=== PATIENT | female | born 1985 | race Caucasian/White ===

== ENCOUNTER → 2017-01-22 | Outpatient (CLI) | payer OTHER ==
--- NOTE | 2017-01-24 08:28 | US ---
PROCEDURE: Abdomen,Complete Clinical History: GENERALIZED ABD PAIN Indication: Same as above Comparison: None . Technique: Grayscale evaluation and color Doppler evaluation of the abdomen was done Findings: The gallbladder is well distended. The gallbladder wall thickness is 2.6 millimeters. There is presence of multiple intraluminal gallstones, the largest calculus measuring 1.4 cm There is no evidence of pericholecystic fluid. There is no ultrasonographically positive Duque's sign. The common duct measures 4.3 millimeters . There are no intraductal calculi visualized. The liver measures 14.8 centimeters in length . There are no focal liver lesions. There is no intrahepatic biliary dilatation. There is normal blood flow direction in the main portal vein, right and left portal veins and the hepatic veins. The pancreas , the visualized portions are unremarkable . The pancreatic tail is not visualized. The spleen measures 12.5 centimeters in length and appears unremarkable, without any focal lesions. The right kidney measures 10.2 centimeters in length and the left kidney measures 10.6 centimeters in length. The bilateral kidneys do not show any evidence of hydronephrosis or nephrolithiasis. There is no evidence of ascites. The visualized portions of the inferior vena cava are patent. The visualized portion of the abdominal aorta does not show any clinically significant aneurysmal dilatation. Impression: Cholelithiasis without ultrasound evidence of acute cholecystitis. There is no intrahepatic or extrahepatic biliary dilatation Location of Interpretation: Teleradiology Electronically signed by: Rian Enamorado MD 01/24/2017 8:27 AM CDT Workstation: [id number]
== END | disposition home or self-care (01) ==
LOC: US 10:06
PROVIDERS: ATTEND Nurse Practitioner Family
DX: R10.84 Generalized abdominal pain (principal)

== ENCOUNTER 2017-02-16 08:00 | Day surgery (SDC) | payer OTHER ==
[~2017-02-16 08:00] MED LIST: LACTATED RINGERS 1,000 ML ONE; SODIUM CHL 0.9% 100ML MINI-BAG 100 ML IVPB ONE; ceFAZolin SODIUM 1 GM VIAL ONE
[2017-02-16] MEDS ORDERED: BUPIVACAINE 0.25% W/EPI 50 ML VIAL INJ ONE (08:22)
[2017-02-16] MEDS ORDERED: HEPARIN SODIUM (PORCINE) 10,000 UNITS/ML VIAL ONE (08:23)
[2017-02-16] MEDS ORDERED: MIDAZOLAM INJ 2 MG/2 ML VIAL ONE (08:30)
[2017-02-16] MEDS ORDERED: fentaNYL CITRATE INJ 50 MCG/ML AMP ONE (08:30)
[2017-02-16] MEDS ORDERED: ROCURONIUM BROMIDE 10 MG/ML VIAL ONE (08:30)
[2017-02-16] MEDS ORDERED: HYDROmorphone HCL INJ 2 MG/ML VIAL ONE (09:33)
[2017-02-16] MEDS ORDERED: SUGAMMADEX SODIUM 200 MG/2 ML VIAL IV ONE (09:59)
[2017-02-16] MEDS ORDERED: KETOROLAC TROMETHAMINE INJ 30 MG/ML VIAL ONE (10:32)
[2017-02-16 11:12] VITALS: O2SAT 99
--- NOTE | 2017-02-16 11:16 | OP ---
DATE OF PROCEDURE: 02/16/17 PREOPERATIVE DIAGNOSIS: 1. Symptomatic cholelithiasis. POSTOPERATIVE DIAGNOSIS: 1. Symptomatic cholelithiasis. 2. Chronic cholecystitis. PROCEDURE: 1. Laparoscopic cholecystectomy with intraoperative cholangiography using fluoroscopy. SURGEON: Jerald Palacio MD. PACKING ROOM WORKER: None. ANESTHESIA: Local infiltration of 0.25% Marcaine with epinephrine and general endotracheal anesthesia. INDICATION: The patient is a 31-year-old female who has had fatty food intolerance, right upper quadrant pain with radiation to the flank and back. The patient was brought to the Surgical Suite today for cholecystectomy after the risks, benefits and alternatives to the procedure were discussed and accepted. She did have a sonogram revealing gallstones. FINDINGS: The gallbladder was mildly distended, mildly thick walled. Intraoperative cholangiography revealed free flow into the duodenum with no filling defects or strictures noted. There were no adhesions to the gallbladder. There were no other adhesions or abnormalities identified in the abdominal cavity. DESCRIPTION OF PROCEDURE: After adequate general endotracheal anesthesia was obtained, the patient was prepped and draped in the usual sterile manner. Surgical time-out was taken. The patient had been given 2 grams of Ancef. The infraumbilical area was infiltrated with local anesthesia. A curvilinear incision was fashioned and carried down through the subcutaneous tissue to the midline fascia. Traction sutures were placed on either side of the midline. A small incision was made in the midline fascia and the peritoneum was opened bluntly. Olesya trocar was introduced under direct vision into the abdominal cavity and fixed in place with the 20 mL balloon. CO2 was then insufflated until a pressure of 12 mmHg was reached and the abdomen was tympanitic in all four quadrants. When this was done, the laparoscope was introduced. The abdomen was inspected with the previously noted findings. The patient was then placed in reverse Trendelenburg position, turned to the left side. The upper abdominal ports were placed under direct vision. The gallbladder was grasped, retracted anteriorly and laterally. The neck of the gallbladder was retracted laterally. The triangle of Calot was then explored bluntly. The cystic duct and cystic artery identified and isolated. The cystic duct was hemoclipped once proximally. The cystic artery was hemoclipped twice proximally and once distally. A small incision was made in the cystic duct. The cholangiogram catheter was introduced through a separate stab wound in the right upper quadrant, introduced into the cystic duct and clipped in place. Cholangiograms were then taken using fluoroscopy which revealed free flow into the duodenum with no filling defects or strictures noted. When this was done, the cystic duct catheter was removed. The cystic duct was hemoclipped three times distally and divided between the hemoclips. The cystic artery was divided. The gallbladder was then dissected free from the gallbladder bed of the liver using electrocautery. The gallbladder was removed from the infraumbilical port site in the usual manner under direct vision. When this was done, the subhepatic space and subphrenic space were irrigated copiously with saline. The effluent was noted to be clear. There was no bleeding from the gallbladder bed of the liver. The brian hepatis was inspected and no bleeding or bile leak was identified. The upper abdominal ports were removed under direct vision. The middle 5 mm port, oozing could not be controlled with electrocautery, so a single 0 Vicryl simple suture was placed using the Endoclose device. When this was done, hemostasis was noted to be adequate. At this point, the CO2, the laparoscope and the infraumbilical port were removed. The infraumbilical port site fascia was approximated with a single [id number] suture of 0 Vicryl. Subcutaneous tissue was irrigated with saline. Skin edges were approximated with 4-0 Vicryl subcuticular sutures along with 4-0 Monocryl, benzoin and Steri- Strips. Sterile dressings were applied. The patient was awakened and taken to the Recovery Room in good and stable condition. Estimated blood loss was less than 25 mL. All sponge, needle and instrument counts were correct. #[id number] [facility]
[2017-02-16] MEDS ORDERED: DEXAMETHASONE INJ 10 MG/ML VIAL IV ONE (12:00)
[2017-02-16] MEDS ORDERED: METOCLOPRAMIDE HCL INJ 10 MG/2 ML VIAL IV ONE (12:00)
[2017-02-16] MEDS ORDERED: PROPOFOL 200 MG/20 ML VIAL IV ONE (12:00)
[2017-02-16] MEDS ORDERED: LIDOCAINE 1% 10 ML VIAL INJ ONE (12:00)
[2017-02-16] MEDS ORDERED: diphenhydrAMINE HCL 50 MG/ML VIAL IV ONE (12:00)
[2017-02-16] MEDS ORDERED: raNITIdine HCL INJ 25 MG/ML VIAL IV ONE (12:00)
[2017-02-16 13:14] VITALS: BP 136/72; TEMP 98
== END 2017-02-16 11:55 | disposition home or self-care (01) ==
LOC: AMB 08:00
PROVIDERS: ATTEND Surgery
DX: K80.10 Calculus of gallbladder with chronic cholecystitis without obstruction (principal); E66.9 Obesity, unspecified; E05.90 Thyrotoxicosis, unspecified without thyrotoxic crisis or storm; Z88.2 Allergy status to sulfonamides; Z79.899 Other long term (current) drug therapy
CPT/HCPCS: 00790; 36415; 47563; 76000; 80053; 81001; 81025; 85025; J0690; J1100; J1170; J1200; J1644; J1885; J2250; J2765; J2780; J3010; J3490; J7050; J7120

== ENCOUNTER 2018-12-29 17:55 | Emergency (ER) | payer BC, OTHER ==
--- NOTE | 2018-12-29 18:16 | ED.PDOC ---
History of Present Illness - General Chief Complaint: Abdominal Pain Stated Complaint: Abdominal pain Time Seen by Provider: 12/29/18 18:06 Information Source: patient, RN notes reviewed, Vital Signs reviewed Exam Limitations: no limitations - History of Present Illness Abdominal Pain Onset Location: RLQ Pain Radiation: no radiation Quality: moderate, sharpness Timing/Duration: other - 3 days Improving Factors: nothing Worsening Factors: nothing Associated Symptoms: diarrhea Review of Systems - Review of Systems Constitutional: States: no symptoms reported EENTM: States: no symptoms reported Respiratory: States: no symptoms reported Cardiology: States: no symptoms reported Gastrointestinal/Abdominal: States: see HPI Genitourinary: States: no symptoms reported Musculoskeletal: States: no symptoms reported Skin: States: no symptoms reported Neurological: States: no symptoms reported Endocrine: States: no symptoms reported Past Medical History (General) - Patient Medical History Hx Dementia: No Hx Cardiac Disorders: No Hx Congestive Heart Failure: No Hx Diabetes: No Hx MRSA: No - Vaccination History Hx Tetanus, Diphtheria Vaccination: Yes Hx Influenza Vaccination: Yes Hx Pneumococcal Vaccination: No - Social History Hx Alcohol Use: No Hx Substance Use: No Hx Depression: No Hx Physical Abuse: No Hx Emotional Abuse: No Hx Suspected Abuse: No - Female History Patient : No Family Medical History - Family History Father Family History: Unknown Hx Family Hypertension: Yes Physical Exam - Physical Exam General Appearance: Alert, Comfortable Eyes, Ears, Nose, Throat Exam: normal ENT inspection Neck: full range of motion Respiratory: chest non-tender, lungs clear, normal breath sounds Cardiovascular/Chest: normal peripheral pulses, regular rate, rhythm Gastrointestinal/Abdominal: soft, tenderness - RLQ Back Exam: normal inspection, no CVA tenderness Extremity: normal range of motion, non-tender Neurologic: health educator II-XII nml as tested, no motor/sensory deficits, alert, normal mood/affect Skin Exam: normal color Progress - Progress Progress: 12/29/18 19:56 Patient presented for [address] pain[address] CT A/p shows ruptured right ovarian cyst. Patient hemodynamically stable, Hgb wnl. Pain improved while here. Patie nt given ER warnings for worsening pain, emesis, fever. Departure - Departure Clinical Impression: Rupture of ovarian cyst, Abdominal pain Time of Disposition: 19:57 Disposition: Discharge to Home or Self Care Condition: Excellent Departure Forms: ED Discharge - Pt. Copy, Patient Portal Self Enrollment Instructions: DI for Abdominal Pain-Adult Diet: resume usual diet Activity: increase activity as tolerated Referrals: MANDI WELDON IV, [facility] [Primary Care Provider] - 1-2 Days Home Medications: Ambulatory Orders Thyroid [[place] Thyroid 60] 60 mg PO DAILY 02/10/17 Comments: For ruptured ovarian cyst
[2018-12-29 19:19] VITALS: O2SAT 99
--- NOTE | 2018-12-29 19:50 | CT ---
EXAM: CT abdomen and pelvis with contrast. INDICATION: Abdominal pain, acute. TECHNIQUE: Contiguous axial CT images of the abdomen and pelvis. Intravenous contrast: Present. Oral contrast: Absent. DLP 1263 mGy-cm. This exam was performed according to our departmental dose-optimization program, which includes automated exposure control, adjustment of the mA and/or kV according to patient size and/or use of iterative reconstruction technique. COMPARISON: None. FINDINGS: Lower chest: Partially imaged. Lung bases: Unremarkable. Cardiac apex: Unremarkable. Solid abdominal viscera: Liver: Unremarkable. Gallbladder: Cholecystectomy Pancreas: Unremarkable. Spleen: Unremarkable. Adrenal glands: Unremarkable. Right kidney: No hydronephrosis. Left kidney: No hydronephrosis. Urinary bladder: Unremarkable. Abdominal aorta: Unremarkable. Peritoneal: Free fluid: Mild Free air: None. Other: No pathologic sized lymph nodes in the upper abdomen. Bowel: Stomach: Unremarkable. Small bowel: Unremarkable. Appendix: Unremarkable. Colon: Unremarkable. Rectum: Unremarkable. Uterus: Unremarkable. Ruptured right ovarian cyst is noted. Bones: Unremarkable. IMPRESSION: Normal appendix. Ruptured right ovarian cyst. Electronically signed by: Jamin Martinez MD 12/29/2018 7:48 PM CDT
[2018-12-29 20:05] VITALS: BP 149/98; TEMP 97.9
== END 2018-12-29 20:06 | disposition home or self-care (01) ==
LOC: ER 17:55
DX: N83.201 Unspecified ovarian cyst, right side (principal); R10.31 Right lower quadrant pain; R19.7 Diarrhea, unspecified